=== PATIENT | female | born 1945 | race Asian ===

== ENCOUNTER → 2020-03-21 | Emergency (ER) | payer OTHER ==
[~2020-03-21] VITALS: Ht 162.6 cm; Wt 68.0 kg
[~2020-03-21] MED LIST: AQUAPHOR EX; BUSPIRONE HYDROC5 MG PO; DIVA500T2 PO; DONEPEZIL HYDRO10 M1 PO; EUTHYROX50 MCG PO; FLOVENT DI50 MCG/BLI INH; FURO40TA93 PO; K-TABS10 MEQ PO; LISI20TA11 PO; NAMENDA5 MG PO; NEURONTIN 100M100 MG PO; RISP0.5T2 PO; SIMV20TA2 PO
[2020-03-21 01:11] LABS: PLATELET COUNT 124 K/uL (152-353)
[2020-03-21 01:29] LABS: POTASSIUM 4.4 mmol/L (3.6-5.2)
[2020-03-21 03:55] VITALS: BP 173/91; TEMP 98.2
== END ==
LOC: ED 00:39
PROVIDERS: Emergency Medicine
DX: F03.91 Unspecified dementia, unspecified severity, with behavioral disturbance (principal); Z11.59 Encounter for screening for other viral diseases; Z04.6 Encounter for general psychiatric examination, requested by authority
CPT/HCPCS: 80053; 85027; 87635; 99285; G2023; U0003

== ENCOUNTER 2022-11-11 20:39 | Emergency (ER) | payer OTHER ==
[~2022-11-11] VITALS: Ht 160 cm; Wt 77.1 kg
[~2022-11-11 20:39] MED LIST changes: +BUSP5TAB2 PO; +CHOL100034 PO; +DIVALPROEX500 MG PO; +LEVO250T2 PO; +MEMA10TA2 PO; +MIRTAZAPINE7.5 MG PO; +OLANZAPINE10 MG PO; +OLANZAPINE5 MG PO
[2022-11-11 20:58] LABS: PLATELET COUNT 120 K/uL (152-353)
[2022-11-11 21:07] LABS: POTASSIUM 3.8 mmol/L (3.6-5.2)
[2022-11-11 21:50] VITALS: BP 169/89; TEMP 98.5
[2022-11-12] MEDS ORDERED: FURO20TA67 PO (10:00)
[2022-11-12] MEDS ORDERED: LISI10TA11 PO ×2 (10:01)
[2022-11-12] MEDS ORDERED: OLANZAPINE20 M1 PO (10:02)
[2022-11-12] MEDS ORDERED: VITAMIN D2000 UNI2 PO (10:04)
[2022-11-12] MEDS ORDERED: DIVA125C PO (10:04)
[2022-11-12] MEDS ORDERED: MEMANTINE HYDRO10 MG PO (10:05)
[2022-11-12] MEDS ORDERED: BUSPIRONE15 MG PO (10:05)
[2022-11-12] MEDS ORDERED: ACETAMINOPHEN PO (10:06)
== END 2022-11-11 21:50 | disposition still patient (30) ==
LOC: ED 20:39
PROVIDERS: Emergency Medicine Emergency Medical Services
DX: F03.92 Unspecified dementia, unspecified severity, with psychotic disturbance (principal); Z11.52 Encounter for screening for COVID-19; Z04.6 Encounter for general psychiatric examination, requested by authority
CPT/HCPCS: 36415; 80053; 85027; 87635; 93005; 99283; U0003